=== PATIENT | male | born 1955 | race Caucasian/White ===

== ENCOUNTER → 2024-08-23 13:50 | Outpatient (REF) | payer MEDICARE, OTHER, SELFPAY | LOC: HWRAD 13:50 | PROVIDERS: ATTENDING PHYSICIAN Student in an Organized Health Care Education/Training Program | DX: M25.511 Pain in right shoulder (principal) | CPT/HCPCS: 73030 ==

== ENCOUNTER → 2024-09-01 07:26 | Outpatient (REF) | payer MEDICARE, OTHER, SELFPAY | LOC: MRI 3T 07:26 | PROVIDERS: ATTENDING PHYSICIAN Student in an Organized Health Care Education/Training Program | DX: M25.511 Pain in right shoulder (principal) | CPT/HCPCS: 73221 ==

== ENCOUNTER 2024-11-06 17:33 | Emergency (ER) | payer MEDICARE, OTHER, SELFPAY ==
[2024-11-06 17:35] VITALS: BP 163/103
[2024-11-06 17:56] LABS: % Basophils 1.4 % (0-2); % Eosinophils 4.1 % (0-6); % Immature Granulocytes 0.2 % (0-0.5); % Lymphocytes 26.3 % (20.5-51.1); % Monocytes 9.6 % (1.7-9.3); % Neutrophils 58.4 % (42.2-75.2); Absolute Basophils 0.1 10^3/uL (0-0.2); Absolute Eosinophils 0.2 10^3/uL (0-0.7); Absolute Lymphocytes 1.3 10^3/uL (1.2-3.4); Absolute Monocytes 0.5 10^3/uL (0.1-0.6); Hematocrit 40.7 % (39.0-52.0); Mean Corp Hgb Conc. 34.4 g/dL (33.0-37.0); Mean Corpuscular Hgb 29.9 pg (27.0-31.0); Mean Corpuscular Volume 86.8 fL (80.0-94.0); Mean Platelet Volume 9.7 fL (7.4-10.4); Nucleated Red Blood Cells % 0 % (-); Platelet Count 237 10^3/uL (130-400); Red Blood Cell Count 4.69 10^6/uL (4.70-6.10); Red Cell Dist. Width 12.9 % (11.5-14.5); White Blood Cell Count 5.1 10^3/uL (4.8-10.8)
[2024-11-06 18:15] LABS: ALT (SGPT) 36 U/L (0-50); AST (SGOT) 30 U/L (17-59); Albumin 4.4 g/dl (3.5-5.0); Alkaline Phosphatase 53 U/L (38-126); Blood Urea Nitrogen 28 mg/dl (9-20); Calcium 9.4 mg/dl (8.4-10.2); Carbon Dioxide 27 mmol/L (22-30); Chloride 106 mmol/L (98-107); Glucose 101 mg/dl (70-99); Potassium 4.5 mmol/L (3.5-5.1); Sodium 141 mmol/L (135-145); Total Bilirubin 0.5 mg/dl (0.2-1.3); Total Protein 7.3 g/dl (6.3-8.2); eGFR > 60.00
[2024-11-06 19:59] VITALS: BMI 26.2
[2024-11-06] MEDS: ELIQUIS 10 MG PO (20:46)
--- NOTE | 2024-11-07 00:37 | ED.GENMED ---
History of Present Illness
General
Chief Complaint: DVT/Possible Blood Clot
Source: patient
Exam Limitations: none
Time Seen by Provider: 11/06/24 19:57
Nursing documentation reviewed up to this point in time: agreed with
History of Present Illness
History of Present Illness:
Patient reports right rotator cuff surgery approx 7 weeks ago. Uneventful recovery until last week when he noted swelling to his right hand. Sling was recently discontinued. Swelling is constant. He was sent for outpatient US of RUE which
revealed right brachial DVT at elbow/anticub. Advised to come to ED. He denies any CP/prssure, SOB.
Past History
Past History
ED Past Medical History: GERD and Other (Elevated PSA)
ED Past Surgical History: Urological (Prostatectomy)
Social History
Tobacco: Non-smoker
Alcohol: Occasional
Drug: None
Personal:
Living: with family
Review of Systems
Review of Systems
Allergies reviewed?: Yes
All Other Systems: ROS reviewed and negative except as documented in HPI and ROS
Constitutional: Reports no symptoms
EENT: Reports no symptoms
Respiratory: Reports no symptoms
Cardiac: Reports no symptoms
ABD/GI: Reports no symptoms
: Reports no symptoms
Musculoskeletal: Reports joint swelling (swelling to right hand/fingers)
Skin: Reports no symptoms
Neurological: Reports no symptoms
Psychiatric: Reports no symptoms
Phy Exam
General Physical Exam
General Presentation: well appearing and no apparent distress
General age: appears stated age
General Skin: warm and dry
General Habitus: normal
General Mental: alert
Cardiovascular Exam
Cardiovascular Exam: regular rate/rhythm
Pulmonary Exam
Pulmonary Exam: lungs clear and no respiratory distress
Musculoskeletal Exam
Musculoskeletal Exam: full ROM, neuro vasc intact and other (swelling to right hand/fingers)
Skin Exam
Skin Exam: normal color, warm/dry and no rash
Psychiatric Exam
Psychiatric Exam: normal mood/affect
Course
Orders/Labs/Results
Orders:
Orders
11/06/24 17:47
CMP [Comprehensive Metabolic Panel] Urgent
Complete Blood Count/With Diff Urgent
11/06/24 20:38
Apixaban [Eliquis] 10 mg PO NOW STA
Abnormal Lab Results
11/06/24
17:47
RBC 4.69 L 10^6/uL
(4.70-6.10)
Monocytes % 9.6 H %
(1.7-9.3)
BUN 28 H mg/dl
(9-20)
Glucose 101 H mg/dl
(70-99)
11/06/24 17:47
11/06/24 17:47
Vital Signs
Initial and Last Documented VS:
Initial Vital Signs
Temp Pulse Resp BP Pulse Ox
98.2 F 75 20 163/103 99
11/06/24 17:35 11/06/24 17:35 11/06/24 17:35 11/06/24 17:35 11/06/24 17:35
Last Documented Vital Signs
Temp Pulse Resp BP Pulse Ox
98.2 F 75 20 163/103 99
11/06/24 17:35 11/06/24 17:35 11/06/24 17:35 11/06/24 17:35 11/06/24 17:35
*Radiology
Radiology exam reviewed: radiology read reviewed
*Pulse Oximetry
Patient hypoxic: no
*Critical Care Note
Total Time (30-74mins, 75-104mins- exclusive of procedures): Not Applicable
Update Note
Update Note:
Patient to ED for swelling to right hand, positive DVT study. US report reviewed with patient. He denies any cp/pressure, SOB. Labs reviewed. Will place on eliquis. Given intial dose in ED. RUE neurovasc. intact. He will be discharged home,
close follow up wtih PCP. Given instructions on s/s to return to ED and he is agreeable to plan.
ED Attending Note
-
Portions of this chart may have been created with voice recognition software.� Occasional wrong word or��sound alike� substitutions may have occurred due to the inherent limitations of voice recognition software.
Discharge Plan
Departure
Patient Disposition: Home (Routine Discharge)
Date of Disposition: 11/06/24
Time of Disposition: 20:40
Patient with high blood pressure during this ER visit?: No
Condition: Good
Covid-19: Not Applicable
Discharge Problem:
DVT (deep venous thrombosis)
Instructions: Deep Vein Thrombosis (Blood Clots in the Legs) (DC)
Prescriptions:
New
Eliquis DVT-PE Treat 30D Start 5 mg (74 tabs) tablets,dose pack
See Rx Instructions .ROUTE .COMPLEX Qty: 74 0RF
Rx Instructions:
orally per package directions
No Action
pantoprazole [Protonix] 40 mg tablet,delayed release (DR/EC)
40 mg PO DAILY Qty: 10 0RF
gabapentin 300 mg capsule
300 mg PO TID Qty: 30 0RF
Referrals:
Marquis Chopra MD [Family Provider] - Tomorrow
Activity Restrictions/Additional Instructions:
Return to the emergency department immediately for any difficulty breathing, chest pain or pressure.
Interventions
Interventions:
*Risk Screen - Suicide Last Done: 11/06/24 19:59
*General Assessment Last Done: 11/06/24 17:35
*Neglect/Abuse Screening Last Done: 11/06/24 19:59
*ED- Fall Risk Assessment Last Done: 11/06/24 19:59
*ED COVID-19 Vaccine History Last Done: 11/06/24 19:59
*Nursing Disposition Last Done: 11/06/24 20:51
ED- Cardiac Assessment Last Done: 11/06/24 20:01
ED- Pulmonary Assessment Last Done: 11/06/24 20:01
ED-Peripheral Vascular Assessment Last Done: 11/06/24 20:01
ED-Skin Assessment Last Done: 11/06/24 20:01
Discharge Date and Time
Discharge Date/Time: 11/06/24 20:51
Print Language: CITIZEN [place]
== END 2024-11-06 20:51 | disposition home or self-care (01) ==
LOC: EMR 17:33
PROVIDERS: EMERGENCY PHYSICIAN Emergency Medicine; FAMILY PHYSICIAN Family Medicine
DX: I82.4Y1 Acute embolism and thrombosis of unspecified deep veins of right proximal lower extremity (principal)
CPT/HCPCS: 99284; 80053; 85025; 93971

== ENCOUNTER → 2024-12-06 12:21 | Outpatient (REF) | payer MEDICARE, OTHER, SELFPAY ==
[2024-12-06 13:33] LABS: D-Dimer 0.37 ug/mlFEU (0.00-0.50)
[2024-12-06 14:20] LABS: Blood Urea Nitrogen 25 mg/dl (9-20); Calcium 9.7 mg/dl (8.4-10.2); Carbon Dioxide 25 mmol/L (22-30); Chloride 108 mmol/L (98-107); Glucose 102 mg/dl (70-99); Potassium 4.2 mmol/L (3.5-5.1); Sodium 139 mmol/L (135-145); eGFR > 60.00
== END ==
LOC: REG 12:21
PROVIDERS: ATTENDING PHYSICIAN Internal Medicine Hematology & Oncology; FAMILY PHYSICIAN Family Medicine
DX: I82.601 Acute embolism and thrombosis of unspecified veins of right upper extremity (principal)
CPT/HCPCS: 36415; 80048; 81240; 81241; 85300; 85305; 85379; 85610; 85613; 85730; 86146; 86147

== ENCOUNTER → 2024-12-11 07:36 | Outpatient (REF) | payer MEDICARE, OTHER, SELFPAY | LOC: RAD 07:36 | PROVIDERS: ATTENDING PHYSICIAN Internal Medicine Hematology & Oncology; FAMILY PHYSICIAN Family Medicine | DX: I82.601 Acute embolism and thrombosis of unspecified veins of right upper extremity (principal) | CPT/HCPCS: 71260; Q9967 ==

== ENCOUNTER 2025-02-11 06:59 | Outpatient (RCR) | payer MEDICARE, OTHER, SELFPAY | END 2025-02-13 10:16 | disposition home or self-care (01) | LOC: RPT 06:59 | PROVIDERS: ATTENDING PHYSICIAN Internal Medicine Hematology & Oncology; FAMILY PHYSICIAN Family Medicine | DX: Z47.89 Encounter for other orthopedic aftercare (principal); Z73.6 Limitation of activities due to disability; M79.641 Pain in right hand; I82.601 Acute embolism and thrombosis of unspecified veins of right upper extremity | CPT/HCPCS: 97162; 97530 ==